=== PATIENT | female | born 1970 | race Caucasian/White ===

== ENCOUNTER 2016-12-14 15:44 | Emergency (ER) | payer OTHER ==
[~2016-12-14] VITALS: Ht 162.6 cm; Wt 74.1 kg
[2016-12-14 15:49] VITALS: Ht 162.6 cm; Wt 74.1 kg
[2016-12-14] MEDS ORDERED: ASPIRIN 325 MG TAB PO STA (15:53)
[2016-12-14] MEDS ORDERED: LIDOCAINE/MYLANTA 40 ML BTL PO STA (15:53)
[2016-12-14] MEDS ORDERED: ALPRAZOLAM 0.25 MG TAB PO ONE (16:00)
[2016-12-14] MEDS ORDERED: ASC500 PO (16:15)
[2016-12-14] MEDS ORDERED: CHOL500062 PO (16:15)
[2016-12-14] MEDS ORDERED: LUTE20TA PO (16:16)
--- NOTE | 2016-12-14 16:19 | RADRPT ---
PROCEDURE: XR Chest. CLINICAL INDICATION: Chest pain . TECHNIQUE: Single frontal chest x-ray. COMPARISON: None. FINDINGS: The lungs are clear of acute infiltrates, edema, effusions, or masses.. The cardiomediastinal silho uette is unremarkable. The osseous structures are intact. IMPRESSION: No acute cardiopulmonary disease. RPTAT: HH .Chin Crisostomo MD, MD Date Time Electronically viewed and signed by .Chin Crisostomo MD, MD on 12/14/2016 16:19 .L/
[2016-12-14] MEDS ORDERED: SOD CHLORIDE 0.9% 1,000 ML IV ONE (16:30)
[2016-12-14 19:30] VITALS: BP 105/59; PULSE 73; RESP 20; TEMP 97.2
[2016-12-14] MEDS ORDERED: ACETAMINOPHEN 500 MG TAB PO STA (20:18)
[2016-12-14] MEDS ORDERED: RANI150T9 PO (20:20)
[2016-12-14] MEDS ORDERED: NAPR-688 PO (20:20)
[2016-12-14] MEDS ORDERED: CEPH500C PO (20:20)
[2016-12-14] MEDS ORDERED: ACETAMINOPHEN 500 MG TAB ONE (20:24)
--- NOTE | 2016-12-14 20:25 | ERD ---
ER Documentation Chief Complaint Chief Complaint CP x 3 days. Denies SOB, Medical Hx HPI 6-year-old female presents with 3 days of chest pain as well as some lightheadedness the last couple days. She has no shortness of breath, nausea or vomiting. Pain is substernal intermittent. Described as a pressure. ROS All systems reviewed and are negative except as per history of present illness. Medications Home Meds Active Scripts Naproxen* (Naproxen*) 500 Mg Tablet, 500 MG PO BID, #20 TAB Prov:RUBEN CONWAY DO 12/14/16 Ranitidine Hcl* (Zantac*) 150 Mg Tablet, 150 MG PO BID, #20 TAB Prov:RUBEN CONWAY DO 12/14/16 Cephalexin* (Cephalexin*) 500 Mg Capsule, 500 MG PO Q6, #12 CAP Prov:RUBEN CONWAY DO 12/14/16 Reported Medications Lutein (Lutein) Unknown Strength Tablet, 1 TAB PO DAILY, TAB 12/14/16 Ascorbic Acid (Vitamin C) 500 Mg Tab, 500 MG PO DAILY, TAB 12/14/16 Cholecalciferol (Vitamin D3) (Vitamin D3) 5,000 Unit Tab.rapdis, 5000 UNIT PO DAILY 12/14/16 Allergies Allergies: Coded Allergies: No Known Allergy (Unverified , 12/14/16) PMhx/Soc History of Surgery: No Anesthesia Reaction: No Hx Neurological Disorder: No Hx Respiratory Disorders: No Hx Cardiac Disorders: No Hx Psychiatric Problems: No Hx Miscellaneous Medical Probl: No Hx Alcohol Use: No Hx Substance Use: No Hx Tobacco Use: No Smoking Status: Never smoker Physical Exam Vitals Vital Signs Date Time Temp Pulse Resp B/P Pulse Ox O2 Delivery O2 Flow Rate FiO2 12/14/16 17:36 67 20 125/84 99 Room Air 12/14/16 15:49 97.2 74 20 152/92 99 Physical Exam Const: [] Distress Head: Atraumatic Eyes: Normal Conjunctiva ENT: Normal External Ears, Nose and Mouth. Neck: Full range of motion..~ No meningismus. Resp: Clear to auscultation bilaterally Cardio: Regular rate and rhythm, no murmurs Abd: Soft, non tender, non distended. Normal bowel sounds Skin: No petechiae or rashes Ext: No cyanosis, or edema Neur: Awake and alert oriented 3, cranial 2 through 12 intact, no cerebellar deficits. Psych: Normal Mood and Affect Result Diagram: 12/14/16 1600 12/14/16 1600 Results 24 hrs Laboratory Tests Test 12/14/16 16:00 12/14/16 17:35 White Blood Count 7.510^3/ul Red Blood Count 3.9310^6/ul Hemoglobin 13.3g/dl Hematocrit 38.1% Mean Corpuscular Volume 96.9fl Mean Corpuscular Hemoglobin 33.8pg Mean Corpuscular Hemoglobin Concent 34.9g/dl Red Cell Distribution Width 11.4% Platelet Count 16955^3/UL Mean Platelet Volume 10.3fl Neutrophils % 60.4% Lymphocytes % 32.3% Monocytes % 5.7% Eosinophils % 1.2% Basophils % 0.1% Nucleated Red Blood Cells % 0.0/100WBC Neutrophils # 4.510^3/ul Lymphocytes # 2.410^3/ul Monocytes # 0.410^3/ul Eosinophils # 0.110^3/ul Basophils # 0.010^3/ul Nucleated Red Blood Cells # 0.010^3/ul Sodium Level 142mmol/L Potassium Level 3.4mmol/L Chloride Level 105mmol/L Carbon Dioxide Level 26mmol/L Anion Gap 14 Blood Urea Nitrogen 16mg/dl Creatinine 0.87mg/dl Glucose Level 100mg/dl Calcium Level 9.2mg/dl Troponin I < 0.012ng/ml Thyroid Stimulating Hormone (TSH) 1.220MIU/L Urine Color YELLOW Urine Clarity CLOUDY Urine pH 7.0 Urine Specific Lowber 1.006 Urine Ketones NEGATIVEmg/dL Urine Nitrite NEGATIVEmg/dL Urine Bilirubin NEGATIVEmg/dL Urine Urobilinogen NEGATIVEmg/dL Urine Leukocyte Esterase 2+Panfilo/ul Urine Microscopic RBC 3/HPF Urine Microscopic WBC 8/HPF Urine Squamous Epithelial Cells FEW/HPF Urine Bacteria FEW/HPF Urine Hemoglobin NEGATIVEmg/dL Urine Glucose NEGATIVEmg/dL Urine Total Protein NEGATIVEmg/dl Current Medications Medications (Trade) Dose Ordered Sig/Thania Route PRN Reason Start Time Stop Time Status Last Admin Dose Admin Aspirin (Aspirin) 325 mg ONCE STAT PO 12/14/16 15:53 12/14/16 15:55 DC 12/14/16 16:13 Miscellaneous Medication (Gi Cocktail (2)) 40 ml ONCE STAT PO 12/14/16 15:53 12/14/16 15:55 DC 12/14/16 16:13 Alprazolam 0.5 mg 0.5 mg ONCE ONCE PO 12/14/16 16:00 12/14/16 16:01 DC 12/14/16 16:13 Sodium Chloride (NS) 1,000 ml @ 1,000 mls/hr Q1H ONCE IV 12/14/16 16:30 12/14/16 17:29 DC 12/14/16 16:13 Acetaminophen (Tylenol Tab) 1,000 mg ONCE STAT PO 12/14/16 20:18 12/14/16 20:19 UNV Procedures/MDM Urinary tract infection and chest pain. Lightheadedness is possibly secondary to urinary tract infection. She has a negative troponin and a completely normal EKG. She was given a liter of normal saline which made her feel better. She was also given aspirin. Going to discharge her with Keflex for 3 days as well as naproxen and Zantac. Primary care follow-up with instructions to obtain echocardiogram as an outpatient. Was given a gram of Tylenol when she have a mild headache prior to discharge. 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 Get an appoitment for an outpatien echocardiogram. See the doctor sooner or return here if your condition worsens before your appointment time. RUBEN CONWAY DO Dec 14, 2016 20:25
== END 2016-12-14 20:48 | disposition home or self-care (01) ==
LOC: E/R 15:44 → EEVIPCON 15:44 → E/R 20:48
DX: N39.0 Urinary tract infection, site not specified (principal)
CPT/HCPCS: 36415; 71010; 80048; 81001; 84443; 84484; 85025; 93005; 99285; J7030